=== PATIENT | female | born 1985 | race American Indian/Alaskan Native ===

== ENCOUNTER 2017-03-11 15:32 | Emergency (ER) | payer BC ==
[2017-03-11] MEDS ORDERED: Sodium Chloride 0.9% 1,000 ML IV STA (15:55)
[2017-03-11] MEDS ORDERED: Morphine 4 mg/ml ISec IVP STA (15:55)
--- NOTE | 2017-03-11 16:07 | ED PDOC ---
Arrival/HPI - General Chief Complaint: Abdominal Pain Time Seen by Provider: 03/11/17 15:37 Historian: Patient - History of Present Illness Narrative History of Present Illness (Text): 03/11/17 16:04 31 year old female, whose history includes , presents to the Emergency department complaining of RLQ pain described as sharp and persistent for 1 day. Patient also complains of loss of appetite and nausea. Patient reports her last normal menstrual period was 1 month ago. Patient denies any fever, chills, chest pain, shortness of breath, vomiting, diarrhea, bowel or bladder incontinence, urinary symptoms, back pain, neck pain, headache, dizziness, trauma/injury, or any other complaints. Time/Duration: 24 hours Symptom Course: Unchanged Quality: Other (sharp and persistent) Context: Home Past Medical History - Provider Review Nursing Documentation Reviewed: Yes - Infectious Disease Hx of Infectious Diseases: None - Tetanus Immunization Tetanus Immunization: Unknown - Reproductive Menopause: No - Past Medical History Past Medical History: No Previous - Cardiac Hx Cardiac Disorders: No - Pulmonary Hx Respiratory Disorders: No - Neurological Hx Neurological Disorder: Yes Hx Migraine: Yes - HEENT Hx HEENT Disorder: No - Renal Hx Renal Disorder: No - Endocrine/Metabolic Hx Endocrine Disorders: No - Hematological/Oncological Hx Blood Disorders: No - Integumentary Hx Dermatological Disorder: No - Musculoskeletal/Rheumatological Hx Musculoskeletal Disorders: No - Gastrointestinal Hx Gastrointestinal Disorders: No - Genitourinary/Gynecological Hx Genitourinary Disorders: No - Psychiatric Hx Psychophysiologic Disorder: No Hx Substance Use: No - Surgical History Hx Section: Yes (2010) Hx Orthopedic Surgery: Yes (LEFT KNEE) - Anesthesia Hx Anesthesia: Yes Hx Anesthesia Reactions: No Hx Malignant Hyperthermia: No - Suicidal Assessment Feels Threatened In Home Enviroment: No Family/Social History - Physician Review Nursing Documentation Reviewed: Yes Family/Social History: Unknown Family HX Smoking Status: Never Smoked Hx Alcohol Use: No Hx Substance Use: No Hx Substance Use Treatment: No Allergies/Home Meds Allergies/Adverse Reactions: Allergies No Known Allergies Allergy (Verified 01/16/15 20:40) Review of Systems - Physician Review All systems were reviewed & negative as marked: Yes - Review of Systems Constitutional: absent: Fevers, Night Sweats Respiratory: absent: SOB Cardiovascular: absent: Chest Pain Gastrointestinal: Abdominal Pain (RLQ), Nausea, Appetite Changes (loss of appetite). absent: Constipation, Diarrhea, Vomiting Genitourinary Female: absent: Dysuria, Frequency, Hematuria, Urine Output Changes Musculoskeletal: absent: Back Pain, Neck Pain Neurological: absent: Headache, Dizziness Physical Exam Vital Signs Reviewed: Yes Vital Signs Temp Pulse Resp BP Pulse Ox 03/11/17 17:59 85 18 118/75 99 03/11/17 16:11 98.6 F 88 18 120/71 98 Temperature: Afebrile Blood Pressure: Normal Pulse: Regular Respiratory Rate: Normal Appearance: Positive for: Well-Appearing, Non-Toxic, Comfortable Pain Distress: None Mental Status: Positive for: Alert and Oriented X 3 - Systems Exam Head: Present: Atraumatic, Normocephalic Pupils: Present: PERRL Extroacular Muscles: Present: EOMI Conjunctiva: Present: Normal Mouth: Present: Moist Mucous Membranes Neck: Present: Normal Range of Motion Respiratory/Chest: Present: Clear to Auscultation, Good Air Exchange. No: Respiratory Distress, Accessory Muscle Use Cardiovascular: Present: Regular Rate and Rhythm, Normal S1, S2. No: Murmurs Abdomen: Present: Tenderness (RLQ tenderness), Normal Bowel Sounds. No: Distention, Peritoneal Signs Back: Present: Normal Inspection Upper Extremity: Present: Normal Inspection. No: Cyanosis, Edema Lower Extremity: Present: Normal Inspection. No: Edema Neurological: Present: GCS=15, CN II-XII Intact, Speech Normal Skin: Present: Warm, Dry, Normal Color. No: Rashes Psychiatric: Present: Alert, Oriented x 3, Normal Insight, Normal Concentration Medical Decision Making ED Course and Treatment: 03/11/17 16:03 Impression: 31 year old female presents to the Emergency department complaining of RLQ pain for 1 day. Plan: -- Abdomen ultrasound -- Transvaginal ultrasound -- Labs -- Urinalysis -- Morphine, IV fluids -- Reassess and disposition Prior Visits: Notes and results from previous visits were reviewed. History of ultrasound on 02/2014, which showed ovarian cyst; torsion considered in differential, but presentation considered more consistent with appendicitis. Progress Notes: 03/11/17 16:13 Poc positive. Patient made aware. Bhcg added. Will get u/s to evaluate for ectopic 03/11/17 17:15 Blood type B+. BHCG 35,600. Denies vaginal bleeding. 03/11/17 17:56 The patient is choosing to leave against medical advice. I have personally explained to the patient that choosing to do so may result in permanent bodily harm or . I have explained that I do not the results of ultrasounds and that she could have an ectopic or appendicitis or other life threatening pathology. I have discussed at great length that without further evaluation and monitoring there may be unforeseen circumstances and/or deterioration causing permanent bodily harm or to herself or her child as a result of her choice. The patient is alert, oriented, and shows the mental capacity to make clear decisions regarding the patients health care at this time. The patient continues to wish to leave against medical advice. 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 In light of the patients decision to leave against medical advice, the patient is aware of the importance to following up as instructed. The patient has been advised that they should return to the emergency room immediately. After patient left labs and u/s resulted 03/11/17 18:21 Ultrasound resulted ULTRASOUND ABDOMEN LIVER: The liver exhibits normal size measuring approximately 14.1 cm in CC dimension. . Liver demonstrates smooth contour though increased echotexture suggesting fatty infiltration however other and hepatics infiltrative hepatocellular disease process not excluded. No obvious hepatic mass collection or calcification. . No intrahepatic bile duct dilatation. GALLBLADDER: No evidence of intraluminal gallbladder calculi. No pericholecystic fluid collections or sonographic Chin sign. COMMON BILE DUCT: Common bile duct measures approximately 0.25 cm. No stones. No dilatation. PANCREAS: Unremarkable as visualized. No mass. No ductal dilatation. RIGHT KIDNEY: Measures cm in length. Normal echogenicity. No calculus, mass, or hydronephrosis. AORTA: No aneurysmal dilatation. IVC: Unremarkable. OTHER FINDINGS: None . IMPRESSION: Findings suggest mild fatty hepatic infiltration however other infiltrative hepatocellular disease process not excluded. ULTRASOUND UTERUS: Uterus is anteverted measuring approximately 9.1 x 4.9 x 6.2 cm. Cervix measures approximately 3.1 cm. There is a single living intrauterine gestation with measurements as follows: Gestational sac: MS D = 1.61 cm = 5 weeks 6 days Yolk sac: 0.42 cm pole: CRL = 0.5 cm = 6 weeks 1 day Heart motion: 127 BPM Average ultrasound age: 6 weeks 0 days 0 weeks 3 days GENEVA: 11/04/2017 Right ovary measures approximately 3.1 x 2.2 x 2.7 cm. Right ovary exhibits arterial flow. Left ovary not visualized. No gross free fluid seen within cul de sac. IMPRESSION: Single living intrauterine gestation estimated at approximately 6 weeks 0 days 0 weeks 3 days. Heart rate document at 127 BPM. Followup OB ultrasound recommended to assess for continued viability. Left ovary not visualized. Labs resulted and show normal wbc but ua shows trace leukocytes and rate bacteria. Call both phone numbers that patient provided to follow-up with her and to prescribe antibiotics for uti and urge her to return for evaluation of appendicitis. Neither phone number is in service. 03/11/17 19:07 - Lab Interpretations Lab Results: 03/11/17 16:15 03/11/17 16:15 Lab Results 03/11/17 16:15: Beta HCG, Quant [id number] H 03/11/17 16:15: Blood Type B POSITIVE, Antibody Screen Negative, BBK History Checked No verified bt 03/11/17 16:15: Sodium 138, Potassium 3.2 L, Chloride 102, Carbon Dioxide 25, Anion Gap 14, BUN 9, Creatinine 0.6 L, Est GFR ( Amer) > 60, Est GFR (Non -Af Amer) > 60, Random Glucose 110, Calcium 9.8, Phosphorus 2.7, Magnesium 1.9, Total Bilirubin 0.4, AST 20, ALT 20, Alkaline Phosphatase 57, Total Protein 7.7 , Albumin 4.3, Globulin 3.4, Albumin/Globulin Ratio 1.3, Lipase 115 03/11/17 16:15: PT 12.0, INR 1.10 H, APTT 38.0 H 03/11/17 16:15: WBC 6.1 D, RBC 4.47, Hgb 12.1, Hct 37.1, MCV 83.0, MCH 27.1, MCHC 32.6, RDW 14.1, Plt Count 287, MPV 9.8, Gran % 73.4 H, Lymph % (Auto) 21.1 L, [place] % (Auto) 4.3, Eos % (Auto) 1.0 L, Baso % (Auto) 0.2, Gran # 4.49, Lymph # 1.3, [place] # 0.3, Eos # 0.1, Baso # 0.01 03/11/17 16:09: Urine Color Yellow, Urine Appearance Sl cloudy, Urine pH 6.0, Ur Specific [place] >= 1.030, Urine Protein Trace H, Urine Glucose (UA) Negative , Urine Ketones Trace H, Urine Blood Negative, Urine Nitrate Negative, Urine Bilirubin Negative, Urine Urobilinogen 1.0 H, Ur Leukocyte Esterase Trace H, Urine RBC 0 - 2, Urine WBC 0 - 2, Ur Epithelial Cells 1 - 3, Urine Bacteria Rare , Urine Other Mucus 03/11/17 15:45: POC Glucose (mg/dL) 127 H I have reviewed the lab results: Yes - RAD Interpretation Radiology Orders: 03/11/17 16:08 OB TRANSVAGINAL [US] Stat 03/11/17 16:11 ABDOMEN LIMITED [US] Stat - Medication Orders Current Medication Orders: Discontinued Medications Sodium Chloride (Sodium Chloride 0.9%) 1,000 mls @ 999 mls/hr IV .Q1H1M STA Stop: 03/11/17 16:55 Last Admin: 03/11/17 16:28 Dose: 999 mls/hr eMAR Start Stop Document 03/11/17 16:28 SF (Rec: 03/11/17 16:28 [id number]) Intravenous Solution Start Date 03/11/17 Start Time 16:28 End Date 03/11/17 End time 17:29 Total Infusion Time 61 Morphine Sulfate (Morphine) 4 mg IVP STAT STA Stop: 03/11/17 15:56 Last Admin: 03/11/17 16:26 Dose: Potassium Chloride (K-Dur 20 Meq Er Tab) 40 meq PO STAT STA Stop: 03/11/17 16:40 Last Admin: 03/11/17 17:27 Dose: 40 meq - Scribe Statement The provider has reviewed the documentation as recorded by the Scribe Richard Buenrostro All medical record entries made by the Roberibclarice were at my direction and personally dictated by me. I have reviewed the chart and agree that the record accurately reflects my personal performance of the history, physical exam, medical decision making, and the department course for this patient. I have also personally directed, reviewed, and agree with the discharge instructions and disposition. Disposition/Present on Arrival - Present on Arrival Any Indicators Present on Arrival: No History of DVT/PE: No History of Uncontrolled Diabetes: No Urinary Catheter: No History of Decub. Ulcer: No History Surgical Site Infection Following: None - Disposition Have Diagnosis and Disposition been Completed?: No Diagnosis: , Abdominal pain Disposition: AGAINST MEDICAL ADVICE Disposition Time: 18:48 Condition: UNKNOWN Referrals: PCP,NO [Primary Care Provider] - Follow up with primary Forms: [facility] ([place])
[2017-03-11 16:12] VITALS: RESP 18; TEMP 98.6
[2017-03-11 16:17] LABS: URINE BILIRUBIN NEGATIVE (NEGATIVE); URINE BLOOD NEGATIVE (NEGATIVE); URINE GLUCOSE (UA) NEGATIVE (NEGATIVE); URINE KETONE TRACE mg/dL (NEGATIVE); URINE LEUKOCYTE ESTERASE TRACE Leu/uL (NEGATIVE); URINE PROTEIN TRACE mg/dL (<30 mg/dL)
[2017-03-11 16:33] LABS: BASO # 0.01 K/mm3 (0.0-2.0); BASO % 0.2 % (0.0-3.0); EOS # 0.1 (0.0-0.7); GRAN # 4.49 (1.4-6.5); GRAN % 73.4 % (50.0-68.0); HEMATOCRIT 37.1 % (36.0-48.0); LYMPH # 1.3 (1.2-3.4); LYMPH % 21.1 % (22.0-35.0); MEAN CORPUSCULAR HEMOGLOBIN 27.1 pg (25.0-35.0); MEAN CORPUSCULAR HGB CONC 32.6 g/dl (31.0-37.0); MEAN PLATELET VOLUME 9.8 fl (7.0-11.0); MONO # 0.3 (0.1-0.6); MONO % 4.3 % (1.0-6.0); RED CELL DISTRIBUTION WIDTH 14.1 % (11.5-14.5); WHITE BLOOD COUNT 6.1 10^3/ul (4.5-11.0)
[2017-03-11 16:34] LABS: URINE APPEARANCE SL CLOUDY (CLEAR); URINE COLOR YELLOW (YELLOW)
[2017-03-11 16:38] LABS: ALB/GLOB RATIO 1.3 (1.1-1.8); ALKALINE PHOSPHATASE 57 U/L (38-126); ALT/SGPT 20 U/L (7-56); AST/SGOT 20 U/L (14-36); BILIRUBIN,TOTAL 0.4 mg/dL (0.2-1.3); BLOOD UREA NITROGEN 9 mg/dL (7-21); CALCIUM 9.8 mg/dL (8.4-10.5); CARBON DIOXIDE 25 mmol/L (21-33); CHLORIDE 102 mmol/L (98-107); GFR AFRICAN-AMERICAN > 60; GLUCOSE,RANDOM 110 mg/dL (70-110); LIPASE 115 U/L (23-300); MAGNESIUM 1.9 mg/dL (1.7-2.2); PHOSPHOROUS 2.7 mg/dL (2.5-4.5); POTASSIUM 3.2 mmol/L (3.6-5.0); SODIUM 138 mmol/L (132-148); TOTAL PROTEIN 7.7 g/dL (5.8-8.3)
[2017-03-11 16:39] LABS: URINE BACTERIA RARE (NEG); URINE RBC 0 - 2 /hpf (0-2); URINE WBC 0 - 2 /hpf (0-6)
[2017-03-11] MEDS ORDERED: Potassium Chloride 20 mEq ER Tab PO STA (16:39)
[2017-03-11 16:40] LABS: INR 1.1 (0.93-1.08)
[2017-03-11 18:16] VITALS: BP 118/75; PULSE 85; O2SAT 99
--- NOTE | 2017-03-11 18:17 | US ---
HISTORY: Right lower quadrant abdominal pain. COMPARISON: None. TECHNIQUE: Sonographic evaluation of the right upper quadrant of the abdomen. FINDINGS: LIVER: The liver exhibits normal size measuring approximately 14.1 cm in CC dimension. . Liver demonstrates smooth contour though increased echotexture suggesting fatty infiltration however other and hepatics infiltrative hepatocellular disease process not excluded. No obvious hepatic mass collection or calcification. . No intrahepatic bile duct dilatation. GALLBLADDER: No evidence of intraluminal gallbladder calculi. No pericholecystic fluid collections or sonographic Chin sign. COMMON BILE DUCT: Common bile duct measures approximately 0.25 cm. No stones. No dilatation. PANCREAS: Unremarkable as visualized. No mass. No ductal dilatation. RIGHT KIDNEY: Measures cm in length. Normal echogenicity. No calculus, mass, or hydronephrosis. AORTA: No aneurysmal dilatation. IVC: Unremarkable. OTHER FINDINGS: None . IMPRESSION: Findings suggest mild fatty hepatic infiltration however other infiltrative hepatocellular disease process not excluded.
--- NOTE | 2017-03-11 18:34 | US ---
HISTORY: Right-sided abdominal pain dated 03/11/2017. COMPARISON: Correlation made with prior pelvic ultrasound dated 02/25/2014 TECHNIQUE: Transabdominal/transvaginal sonographic evaluation of the pelvis performed. FINDINGS: UTERUS: Uterus is anteverted measuring approximately 9.1 x 4.9 x 6.2 cm. Cervix measures approximately 3.1 cm. There is a single living intrauterine gestation with measurements as follows: Gestational sac: MS D = 1.61 cm = 5 weeks 6 days Yolk sac: 0.42 cm pole: CRL = 0.5 cm = 6 weeks 1 day Heart motion: 127 BPM Average ultrasound age: 6 weeks 0 days 0 weeks 3 days GENEVA: 11/04/2017 Right ovary measures approximately 3.1 x 2.2 x 2.7 cm. Right ovary exhibits arterial flow. Left ovary not visualized. No gross free fluid seen within cul de sac. IMPRESSION: Single living intrauterine gestation estimated at approximately 6 weeks 0 days 0 weeks 3 days. Heart rate document at 127 BPM. Followup OB ultrasound recommended to assess for continued viability. Left ovary not visualized.
== END 2017-03-11 17:59 | disposition left against medical advice (07) ==
LOC: ED 15:32
DX: O26.891 Other specified pregnancy related conditions, first trimester (principal); R10.9 Unspecified abdominal pain; Z3A.01 Less than 8 weeks gestation of pregnancy
CPT/HCPCS: 76705; 76817; 80053; 81001; 82948; 83690; 83735; 84100; 84702; 85025; 85610; 85730; 86850; 86900; 87086; 96360; 99285; J7040

== ENCOUNTER 2018-07-02 11:02 | Emergency (ER) | payer BC | END 2018-07-02 12:06 | disposition left against medical advice (07) | LOC: ED 11:02 | DX: Z02.89 Encounter for other administrative examinations (principal); R10.9 Unspecified abdominal pain ==